=== PATIENT | male | born 1985 | race Caucasian/White ===

== ENCOUNTER 2016-05-16 16:46 | Emergency (ER) | payer MEDICAID, OTHER ==
[~2016-05-16] VITALS: Ht 185.4 cm; Wt 72.6 kg
[2016-05-16 19:00] VITALS: BP 154/92
[2016-05-16] MEDS ORDERED: KETOROLAC TROMETH 60MG/2ML VIAL IM ONE (20:15)
[2016-05-16] MEDS ORDERED: LACTULOSE 20Gm/30ML SOLN PO ONE (20:30)
== END 2016-05-16 20:43 | disposition home or self-care (01) ==
LOC: ER 16:51
DX: K59.00 Constipation, unspecified (principal)
CPT/HCPCS: 74022; 96372; 99284; J1885